=== PATIENT | female | born 1975 | race Caucasian/White ===

== ENCOUNTER 2023-06-18 11:12 | Inpatient (IN) | payer OTHER, SELFPAY ==
[2023-06-17] VITALS (10 sets, daily range): BP systolic 132–160; BP diastolic 72–94; PULSE 106–107; O2SAT 96; BMI 35.7
--- NOTE | 2023-06-17 02:03 | ED.GENMED ---
History of Present Illness
General
Chief Complaint: Back Pain
Source: patient and spouse
Exam Limitations: none
Time Seen by Provider: 06/17/23 01:52
Nursing documentation reviewed up to this point in time: agreed with
Travel History
Have you had any contact with someone who has COVID-19?: No
Do you have any symptoms of coronavirus? Fever > 100 degrees, chills, cough, shortness of breath, sore throat, loss of taste or smell, muscle aches, or headache?: No
History of Present Illness
History of Present Illness:
48-year-old female with past medical history of hypertension, migraines, asthma who presents to the emergency department for evaluation of low back pain. Patient reports that she has had chronic issues with low back pain and sciatica. She says
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 She reports pain across the low back that radiates
towards the left hip. Pain is much worse with movement; no relieving factors noted. She did go to urgent care yesterday () and she says had an x-ray that was unremarkable and was prescribed Flexeril 10 mg tabs and was told to use NSAIDs as
well and neither of these things have improved her symptoms. She says tonight symptoms are so bad that she is having trouble moving around and walking and so she came to the emergency room for assessment. She reports some paresthesias in the left
leg but denies any numbness; she denies any weakness in the legs although she does have significant pain with movement of the left leg which limits her. She denies any saddle anesthesia. She denies any bowel or bladder incontinence. She denies
any falls or trauma. She denies any recent fevers or chills. She denies any other complaints.
Past History
Past History
ED Past Medical History: Asthma, HTN and Other (UTI, kidney stones, previous hysterectomy for endometriosis and ovarian cysts)
ED Past Surgical History: Cholecystectomy and Gynecological (Hysterectomy)
Social History
Tobacco: Non-smoker
Alcohol: None
Drug: None
Personal:
Living: with family
Employment: Not employed
Family History
Family History: Other (Not contributory)
Review of Systems
Review of Systems
All Other Systems: ROS reviewed and negative except as documented in HPI and ROS
Constitutional: Denies fever or chills
EENT: Denies sore throat or runny nose
Respiratory: Denies cough or trouble breathing
Cardiac: Denies chest pain or palpitations
ABD/GI: Denies abdominal pain, nausea, vomiting or diarrhea
: Denies dysuria, frequency, flank pain or incontinence
Musculoskeletal: Reports back pain; Denies neck pain
Neurological: Denies headache
Phy Exam
Physical Exam
Physical Exam:
General: Awake, alert, oriented x3; lying flat on her back appears uncomfortable
Head: Normocephalic, atraumatic
Eyes: Conjunctiva normal
Throat: Airway intact, handling secretions
Neck: Trachea midline, supple without meningismus
Lungs: Clear to auscultation bilaterally, no wheezing, rales, rhonchi
Heart: Regular rate and rhythm, no murmurs, gallops, or rubs
Abd: Soft, non distended, nontender with no abdominal masses
Back: She has some midline tenderness in the lumbar spine at the L2-L3 level
Neuro: Cranial nerves grossly intact, speech fluid; motor and sensory function intact and symmetric bilateral lower extremities
Skin: no rash
Extremities: Warm and well-perfused
Scores
Heart Failure Risk
Heart Failure Risk Score: Not Applicable
Heart Score for Chest Pain Patients
STEMI patient?: Not applicable
Withdrawal Assessment of Alcohol
Withdrawal Assessment Completed?: Not applicable
Course
Orders/Labs/Results
Orders:
Orders
06/17/23 02:02
Acetaminophen [Tylenol] 1,000 mg PO NOW STA
Ketorolac [Toradol] 15 mg IV NOW STA
Lidocaine [Lidocaine 4% Patch] 1 patch TOPICAL ONCE ONE
Morphine Sulfate 4 mg IV NOW STA
06/17/23 02:05
Urinalysis Reflex To Culture Urgent
Test Result ONCE
06/17/23 02:06
CT Abd/pelvis W Iv Cont Urgent
Comment:
Reason For Exam: severe low back pain
06/17/23 02:09
Complete Blood Count/With Diff Urgent
Comprehensive Metabolic Panel Urgent
HCG, Serum Qualitative Screen Urgent
06/17/23 02:12
Ondansetron Injectable [Zofran] 4 mg .ROUTE .STK-MED ONE
06/17/23 02:16
Ondansetron Injectable [Zofran] 4 mg IV NOW STA
06/17/23 04:45
HYDROmorphone [Dilaudid] 0.5 mg IV NOW STA
Abnormal Lab Results
06/17/23
02:09
Hct 36.4 L %
(37.0-47.0)
Absolute Monos (auto) 0.8 H 10^3/uL
(0.1-0.6)
Glucose 117 H mg/dl
(70-99)
ALT 53 H U/L
(0-35)
06/17/23 02:09
06/17/23 02:09
Vital Signs
Initial and Last Documented VS:
Initial Vital Signs
Temp Pulse Resp BP Pulse Ox
36.6 C 69 20 160/89 98
06/17/23 01:54 06/17/23 01:54 06/17/23 01:54 06/17/23 01:54 06/17/23 01:54
Last Documented Vital Signs
Temp Pulse Resp BP Pulse Ox
36.6 C 69 20 160/89 98
06/17/23 01:54 06/17/23 01:54 06/17/23 01:54 06/17/23 01:54 06/17/23 01:54
MDM/Problems Addressed
Differential Diagnosis Includes:
Muscle spasms, myofascial strain, lumbar fracture, herniated disc, lumbosacral radiculopathy, nephrolithiasis, intra-abdominal process including diverticulitis/pyelonephritis
MDM/Problems Addressed:
48-year-old female presents for evaluation of acute on chronic low back pain since Monday. Not responding to muscle relaxers and NSAIDs at home. Hypertensive but otherwise normal vitals. Exam as above. Plan to place an IV send basic labs.
Check urinalysis. Will check CT of the abdomen and pelvis. Will treat symptomatically. Monitor closely reassess after the above.
Initial labs reviewed: CBC and CMP unremarkable. Clinical reassessment after medications patient says she is feeling a bit better but still having significant pain�she says that initially her back pain was 10/10 intensity, since receiving
medication she says she has now 6�7/10. Still having difficulty moving around due to her significant back pain. Awaiting results of CT.
CT reviewed no acute pathology. Clinical reassessment patient says pain has spiked up once again now 9/10. At this point she is requiring multiple parental medications to control her pain and she is still not able to get up and walk around due to
significant pain. Will plan to admit for continued management of intractable low back pain.
Chronic conditions affecting care:
Chronic low back pain and sciatica
Acute Exacerbation and/or Progression of Chronic Illness:
Acutely hypertensive likely related to pain�we will treat pain but hold on antihypertensives for now
Acute Exacerbation and/or Progression of Chronic Illness: HTN
*Radiology
Radiology exam reviewed: radiology read reviewed
*Pulse Oximetry
Patient hypoxic: no
*Critical Care Note
Total Time (30-74mins, 75-104mins- exclusive of procedures): Not Applicable
Data Reviewed
Source: patient and spouse
ED Attending Note
-
Portions of this chart may have been created with voice recognition software.� Occasional wrong word or��sound alike� substitutions may have occurred due to the inherent limitations of voice recognition software.
Discharge Plan
Departure
Prescriptions:
No Action
No Current Medications
0
Referrals:
Wallace Olson MD [Family Provider] -
Interventions
Interventions:
*Risk Screen - Suicide Last Done: 06/17/23 01:54
*General Assessment Last Done: 06/17/23 01:54
*Neglect/Abuse Screening Last Done: 06/17/23 01:54
ED- Fall Risk Assessment Last Done: 06/17/23 02:28
ED-Musculoskeletal Assessment Last Done: 06/17/23 02:28
Discharge Date and Time
Print Language: UKRAINIAN
[2023-06-17] MEDS: TYLENOL 1000 MG PO (02:14)
[2023-06-17] MEDS: TORADOL 15 MG IV (02:14)
[2023-06-17 02:15] LABS: % Basophils 0.7 % (0-2); % Eosinophils 3.6 % (0-6); % Immature Granulocytes 0.2 % (0-0.5); % Lymphocytes 25.5 % (20.5-51.1); % Monocytes 7.5 % (1.7-9.3); % Neutrophils 62.5 % (42.2-75.2); Absolute Basophils 0.1 10^3/uL (0-0.2); Absolute Eosinophils 0.4 10^3/uL (0-0.7); Absolute Lymphocytes 2.6 10^3/uL (1.2-3.4); Absolute Monocytes 0.8 10^3/uL (0.1-0.6); Absolute Neutrophils 6.3 10^3/uL (1.4-6.5); Hematocrit 36.4 % (37.0-47.0); Hemoglobin 12.8 g/dL (12.0-16.0); Mean Corp Hgb Conc. 35.2 g/dL (33.0-37.0); Mean Corpuscular Hgb 29.8 pg (27.0-31.0); Mean Corpuscular Volume 84.7 fL (81.0-99.0); Mean Platelet Volume 9.4 fL (7.4-10.4); Nucleated Red Blood Cells % 0 %; Platelet Count 357 10^3/uL (130-400); White Blood Cell Count 10.1 10^3/uL (4.8-10.8)
[2023-06-17] MEDS: MORPHINE SULFATE 4 MG IV (02:15)
[2023-06-17] MEDS: LIDOCAINE 4% PATCH 1 PATCH TOPICAL (02:15)
[2023-06-17] MEDS: ZOFRAN 4 MG IV (02:16)
[2023-06-17 02:30] LABS: HCG, Serum Qualitative Screen Negative
[2023-06-17 02:32] LABS: ALT (SGPT) 53 U/L (0-35); AST (SGOT) 33 U/L (14-36); Albumin 4.3 g/dl (3.5-5.0); Alkaline Phosphatase 100 U/L (38-126); Blood Urea Nitrogen 16 mg/dl (7-17); Calcium 9.5 mg/dl (8.4-10.2); Carbon Dioxide 24 mmol/L (22-30); Chloride 106 mmol/L (98-107); Glucose 117 mg/dl (70-99); Potassium 3.7 mmol/L (3.5-5.1); Sodium 137 mmol/L (135-145); Total Bilirubin 0.6 mg/dl (0.2-1.3); Total Protein 7.2 g/dl (6.3-8.2); eGFR > 60.00
[2023-06-17] MEDS: DELTASONE 50 MG PO (04:58)
[2023-06-17] MEDS: DILAUDID 0.5 MG IV (04:58)
--- NOTE | 2023-06-17 05:11 | HPS.HSE ---
Family Physician
-
Family Physician: Wallace Olson
Chief Complaint
-
Chr LBP flare
History of Present Illness
48F HX chr LBP with sciatica, HTN, Kidney stone seen at ER fo evalaution of intractable LBP despite IV Tylenol 1g, IV Toradol 15 mg, IV Morphine 4mg, IV Dilaudid 0.5mg at ER.
Onset of worsening pain since Wed with radiation to Lt Hip. It is aggravated by movement. No significant relieving factors.
Despite OP Flexeril 10 mg tabs and NSAIDs failed to relive pain.
ROS
POS paraesthesia leg
No saddle anesthesia.
No weakness in the legs
No acute BW and bladder incontinence
Medical History
Past Medical History
Past Medical History: Reports Other
Additional Past Medical History:
Asthma
HTN
UTI
Kidney stones
Past Surgical History: Reports Cholecystectomy and Gynocological (hysterectomy )
Social History
Tobacco: Non-smoker
Alcohol: None
Drug: None
Personal:
Living: With Family
Family History
Family History: Not pertinent
Allergies / Home Medications
Allergies reflects when Allergies were last updated in [employer].
Home Medications with original date entered in [employer]
Allergy/Medication List:
Allergies
Allergy/AdvReac Type Severity Reaction Status Date / Time
morphine Allergy Severe Nausea / Verified 01/15/23 19:40
Vomiting
codeine Allergy 'heart Verified 01/15/23 19:40
races'
Home Medications
No Meds [No Current Medications] 01/15/23
Review of Systems
-
Constitutional: Reports No Symptoms
EENT: Reports No Symptoms
Respiratory: Reports No Symptoms
Cardiac: Reports No Symptoms
Abdomen/GI: Reports No Symptoms
: Reports No Symptoms
Musculoskeletal: Reports See HPI
Skin: Reports No Symptoms
Neurological: Reports No Symptoms
Endocrine: Reports No Symptoms
Hematologic/Lymphatic: Reports No Symptoms
Psych: Reports No Symptoms
Physical Exam
Vital Signs
Vital Signs
Temp Pulse Resp BP Pulse Ox
97.8 F 69 20 132/74 97
06/17/23 01:54 06/17/23 01:54 06/17/23 01:54 06/17/23 05:00 06/17/23 05:00
Physical Exam
General: Appears in Distress (while lying flat )
HEENT: NormoCephalic and Atraumatic
Respiratory: Clear
Cardiac: S1/S2 and Regular Rhythm
Breast: Deferred by me
GI: Soft, Non Tender, Non Distended and Normal Bowel Sounds
Rectal: Deferred by Provider
Genito-urinary: Deferred by me
Musculoskeletal: Other (midline tenderness at L2-L3 level)
Skin: Warm and Dry
Neuro: AO x 3, No Motor Deficits and Cranial Nerves Intact
Psych: Calm
Laboratory Results
-
06/17/23 02:09
06/17/23 02:09
Laboratory Results
Total Bilirubin 0.6 mg/dl (0.2-1.3) 06/17/23 02:09
AST 33 U/L (14-36) 06/17/23 02:09
ALT 53 U/L (0-35) H 06/17/23 02:09
Alkaline Phosphatase 100 U/L (38-126) 06/17/23 02:09
Data Reviewed
-
CT Scan: Report Reviewed by me
Lab Data: Labs Reviewed by me
Impression/Plan
-
Reviewed VS: Afebrile HR 70 BP 160/90
Data
nl CBC
nl CMP
CT AP with IV contrast
No canal stenosis of Lx spine
Hepatic steatosis
S/p cholecystectomy
ASSESSMENT & PLAN
Acute on chronic Lt sided Lumbosacral radiculopathy
No red flag signs such as b/l weakness, B & B dysfunction
- Hold off MRI
- Conservative medical Tx : Medrol dose pack, MS relaxant, Dilaudid analgesia
- PT/OT consult
HX HTN - sub optimal control
- add IV Hydralazine PRN
- adequate back pain control and observe BP
HX Kidney stone
Unremarkable CT AP
DVT Px: LMWH
Code: Full
Obs MS
[2023-06-17] MEDS: VALIUM 2 MG PO ×2 (07:59→19:38)
--- NOTE | 2023-06-17 08:22 | W.PN.HOSP.TC ---
Today's Communication/Plan
-
Pain control. MRI of the lumbar spine. Neurosurgery eval
Assessment / Plan
Assessment / Plan
Physical Exam
General: Appears in Distress (while lying flat )
HEENT: NormoCephalic and Atraumatic
Respiratory: Clear
Cardiac: S1/S2 and Regular Rhythm
Breast: Deferred by me
GI: Soft, Non Tender, Non Distended and Normal Bowel Sounds
Rectal: Deferred by Provider
Genito-urinary: Deferred by me
Musculoskeletal: Other (midline tenderness at L2-L3 level)
Skin: Warm and Dry
Neuro: AO x 3, No Motor Deficits and Cranial Nerves Intact
Psych: Calm
A/P:
Acute on chronic Lt sided Lumbosacral radiculopathy:
-Plan for MRI of the lumbar spine today
-Continue pain medications and steroids--> Medrol dose pack, MS relaxant, Dilaudid analgesia
- PT/OT consult
Addendum:
-Patient MRI with large left posterior this protrusion at L5-S1. Will have neurosurgery consult (Luther texted neurosurgery today).
HX HTN - sub optimal control
- add IV Hydralazine PRN
-
HX Kidney stone
Unremarkable CT AP
DVT Px: LMWH--> change to SCDs if patient is procedure surgery
Code: Full
Anticipated Discharge: 24 - 48 hours
Subjective/Interval History
-
Date of Service: June 17, 2023
Patient continues to have significant back pain radiated to left lower extremity. She has some weakness in that extremity as well. No fevers or chills. No chest pain or shortness of breath.
Objective Data
-
Labs:
Laboratory Results
06/17/23
02:09
WBC 10.1
Hgb 12.8
Hct 36.4 L
Plt Count 357
Sodium 137
Potassium 3.7
Chloride 106
Carbon Dioxide 24
BUN 16
Creatinine 0.6
Glucose 117 H
Calcium 9.5
Total Bilirubin 0.6
AST 33
ALT 53 H
Alkaline Phosphatase 100
Vital Signs:
Vital Signs
Temp Pulse Resp BP Pulse Ox
97.8 F 69 20 134/85 97
06/17/23 01:54 06/17/23 01:54 06/17/23 01:54 06/17/23 07:17 06/17/23 07:17
Review of Systems
-
All other systems: Reviewed and negative
--- NOTE | 2023-06-17 09:00 | PTCARENOTE ---
Received pt from ED. Pt transferred from stretcher to bed with crutches and minimal assistance. Vital signs stable. patient denies any chest pain or shortness of breath. Pt oriented to unit. All questions/concerns answered. call bel within reach.
[2023-06-17] MEDS: DILAUDID 0.25 MG IV ×4 (09:41→23:14)
[2023-06-17] MEDS: TYLENOL PO (15:47)
[2023-06-17] MEDS: TYLENOL 650 MG PO ×3 (15:49→23:14)
[2023-06-17] MEDS: COLACE 100 MG PO (19:39)
[2023-06-17 21:36] LABS: Urine Albumin Negative (Neg - Trace); Urine Bilirubin Negative (Negative); Urine Character Clear (Clear); Urine Color Yellow; Urine Glucose Negative (Negative); Urine Ketone Trace (Negative); Urine Leukocyte Trace (Negative); Urine Nitrite Negative (Negative); Urine Occult Blood Negative (Negative); Urine Urobilinogen Negative (Neg - 1+)
[2023-06-17 21:57] LABS: Urine Mucus Moderate
[2023-06-17 21:58] LABS: Urine Bacteria Moderate (Negative); Urine Red Blood Cell 0-2 /HPF (0-2)
[2023-06-18] MEDS: AUGMENTIN 875 MG/125 MG 1 TABLET PO ×2 (00:25→07:59)
[2023-06-18] MEDS: DILAUDID 0.25 MG IV ×3 (03:25→11:14)
[2023-06-18] MEDS: TYLENOL 650 MG PO ×5 (03:25→19:43)
--- NOTE | 2023-06-18 04:22 | W.PN.UPDATE ---
Update Note
Progress Note Update
12/17 UA with Trace ketones and Leukocyte Esterase, 11-15 WBC and moderate bacteria,
Urine culture pending. Patient has hx of UTI, will start on Augmentin PO, patient can tolerate PO medications. No new symptoms.
[2023-06-18 07:57] VITALS: BP 154/85
[2023-06-18] MEDS: COLACE 100 MG PO ×2 (07:59→19:43)
[2023-06-18] MEDS: VALIUM 2 MG PO ×2 (07:59→19:43)
[2023-06-18] MEDS: MEDROL 24 MG PO (08:00)
--- NOTE | 2023-06-18 08:28 | W.PN.HOSP.TC ---
Today's Communication/Plan
-
Pain control. Neurosurgery plan for surgery tomorrow.
Assessment / Plan
Assessment / Plan
Physical Exam
General: Appears in Distress (while lying flat )
HEENT: NormoCephalic and Atraumatic
Respiratory: Clear
Cardiac: S1/S2 and Regular Rhythm
Breast: Deferred by me
GI: Soft, Non Tender, Non Distended and Normal Bowel Sounds
Rectal: Deferred by Provider
Genito-urinary: Deferred by me
Musculoskeletal: Other (midline tenderness at L2-L3 level)
Skin: Warm and Dry
Neuro: AO x 3, No Motor Deficits and Cranial Nerves Intact
Psych: Calm
A/P:
Acute on chronic Lt sided Lumbosacral radiculopathy:
-Plan for MRI of the lumbar spine today
-Continue pain medications and steroids--> Medrol dose pack, MS relaxant, Dilaudid analgesia
- PT/OT consult
-Patient MRI with large left posterior this protrusion at L5-S1. Neurosurgery consulted--> discussed with neurosurgery today and plan for surgery likely tomorrow.
-Increase pain meds today
Prob Urinary tract infection:
-Empirically start IV ceftriaxone
-Follow-up urine culture
-IVF one liter
HX HTN - sub optimal control
- added IV Hydralazine PRN-->reevaluate after pain better
Migraine
-pain control
HX Kidney stone
Unremarkable CT AP
DVT Px: Stop Lovenox. Started SCD
Code: Full
Anticipated Discharge: > 48 hours
Subjective/Interval History
-
Date of Service: June 18, 2023
Patient still having significant back pain radiated to left leg. Weakness. Afebrile.
Objective Data
-
Vital Signs:
Vital Signs
Temp Pulse Resp BP Pulse Ox
97.9 F 87 16 135/81 96
06/17/23 23:05 06/17/23 23:05 06/17/23 23:05 06/17/23 23:05 06/17/23 23:05
I&O
06/17/23 06/18/23 06/19/23
06:59 06:59 06:59
Intake Total 1140 / 1140
Balance 1140 / 1140
[2023-06-18] MEDS: ROCEPHIN 1000 MG IV (08:59)
[2023-06-18] MEDS: STERILE WATER FOR INJECTION 10 ML IV (09:00)
--- NOTE | 2023-06-18 11:04 | CON.NS ---
Addendum entered and electronically signed by Naren Earl DO 06/18/23 11:14:
PLan for OR tomorrow with Dr. Pratt
Original Note:
Chief Complaint
-
Back and left leg pain
History of Present Illness
This is a 48-year-old female admitted for severe back pain and left leg pain. The pain radiates in an S1 distribution. She rates her pain 10 out of 10 upon presentation currently 6-7 out of 10. She notes significant weakness in her left leg and
pain which began on Monday. States she has had back pain since January or February 2023. She is managing her symptoms with chiropractic. She denies any bowel or bladder incontinence. Denies any numbness or tingling. Denies any symptoms in
the right leg. She is unable to walk on the left leg secondary to severe amounts of pain.
Review of Systems
-
10 point review of systems completed and is negative except as stated in the HPI
Medication and Allergies
Home Medications
Home Medications
�Medication �Instructions �Recorded
No Meds [No Current Medications] 01/15/23
Allergies
Allergies
Allergy/AdvReac Type Severity Reaction Status Date / Time
morphine Allergy Severe Nausea / Verified 01/15/23 19:40
Vomiting
codeine Allergy 'heart Verified 01/15/23 19:40
races'
Physical Exam
-
Exam:
AAOx3
Cranials 2 through 12 grossly intact
Sensory is grossly intact
DTRs are decreased in left leg
Motor strength testing reveals 5-5 upper extremity lower extremity strength except for her left TA/EHL/plantarflexion all of which are 3 out of 5
MRI lumbar spine reveals large L5-S1 left sided disc herniation and compression of the S1 nerve root.
Problems
-
Problem Status Onset Code
Low back pain M54.50
Assessment / Plan
-
L5-S1 disc herniation on the left
1. Continue pain control with current regiment
2. I recommended surgical intervention which would consist of a left-sided microdiscectomy at L5-S1. I explained all risks benefits and alternatives to her. Risks include but are not limited to infection, bleeding, numbness, weakness, pain,
paralysis, failure to improve, need for further intervention, disc reherniation, CSF leak.
3. We discussed nonsurgical interventions consisting of epidural steroid injection however given her weakness I recommend surgery.
4. Will make tentative plans for surgery this week. Date to be determined.
5. Will follow.
--- NOTE | 2023-06-18 12:26 | CM ---
manager restaurant reviewed patient's chart and met with patient. Patient was admitted under obs but switched to inpatient, patient made aware. Patient lives with her spouse in a split level home, patient is independent with adl's and ambulation, patient
drives, patient has a prescription plan and uses [facility].
PCP: Dr. Olson
Plan; Patient is for possible OR tomorrow.
[2023-06-18] MEDS: NSS 1000 IV (13:27)
[2023-06-18] MEDS: DILAUDID 0.5 MG IV ×3 (13:36→22:05)
[2023-06-18 15:42] VITALS: BP 143/90
[2023-06-18] MEDS: BenGay-Like 41 APPLIC TOPICAL (18:09)
[2023-06-18 23:15] VITALS: BP 145/86
[2023-06-19] VITALS (15 sets, daily range): BP systolic 125–163; BP diastolic 73–101
[2023-06-19] MEDS: TYLENOL PO ×4 (00:44→18:34)
[2023-06-19] MEDS: DILAUDID 0.5 MG IV ×5 (02:05→20:38)
[2023-06-19 06:35] LABS: % Basophils 0.7 % (0-2); % Eosinophils 1.3 % (0-6); % Immature Granulocytes 0.4 % (0-0.5); % Lymphocytes 35.3 % (20.5-51.1); % Monocytes 6.6 % (1.7-9.3); % Neutrophils 55.7 % (42.2-75.2); Absolute Basophils 0.1 10^3/uL (0-0.2); Absolute Eosinophils 0.2 10^3/uL (0-0.7); Absolute Immature Granulocytes 0.1 10^3/uL (0-0.05); Absolute Lymphocytes 4.5 10^3/uL (1.2-3.4); Absolute Monocytes 0.8 10^3/uL (0.1-0.6); Hematocrit 39.3 % (37.0-47.0); Hemoglobin 13.5 g/dL (12.0-16.0); Mean Corp Hgb Conc. 34.4 g/dL (33.0-37.0); Mean Corpuscular Hgb 29.8 pg (27.0-31.0); Mean Corpuscular Volume 86.8 fL (81.0-99.0); Mean Platelet Volume 9.7 fL (7.4-10.4); Nucleated Red Blood Cells % 0 %; Platelet Count 394 10^3/uL (130-400); Red Blood Cell Count 4.53 10^6/uL (4.20-5.40); Red Cell Dist. Width 12.1 % (11.5-14.5); White Blood Cell Count 12.7 10^3/uL (4.8-10.8)
[2023-06-19 06:59] LABS: Blood Urea Nitrogen 23 mg/dl (7-17); Calcium 9.9 mg/dl (8.4-10.2); Carbon Dioxide 30 mmol/L (22-30); Chloride 98 mmol/L (98-107); Estimated Creatinine Clearance > 125 ml/min; Glucose 93 mg/dl (70-99); Potassium 4.4 mmol/L (3.5-5.1); Sodium 137 mmol/L (135-145); eGFR > 60.00
[2023-06-19] MEDS: MEDROL 20 MG PO (09:06)
[2023-06-19] MEDS: COLACE 100 MG PO ×2 (09:07→21:55)
[2023-06-19] MEDS: VALIUM 2 MG PO ×2 (09:07→21:55)
[2023-06-19] MEDS: TYLENOL 650 MG PO ×2 (09:07→21:55)
[2023-06-19] MEDS: STERILE WATER FOR INJECTION 10 ML IV (09:08)
[2023-06-19] MEDS: ROCEPHIN 1000 MG IV (09:08)
--- NOTE | 2023-06-19 09:53 | W.PN.HOSP.TC ---
Today's Communication/Plan
-
Await OR
Stop antibiotics
Assessment / Plan
Assessment / Plan
Gen-AAOx3, NAD, obese
HEENT-NC, AT, anicteric, clear oral mm
Neck-supple
CV-reg, no M, +S1/S2
Lungs-clear B/L
Abd-soft, NT, ND
Ext-no edema
Musculoskeletal-no cyanosis, clubbing
Skin-warm and dry
Neuro-grossly non-focal
Psych-calm, cooperative
Acute on chronic Lt sided Lumbosacral radiculopathy:
-Continue pain medications and steroids--> Medrol dose pack, MS relaxant, Dilaudid analgesia
- PT/OT consult
MRI with large left posterior disc protrusion at L5-S1, impinging upon the descending left S1 nerve root. Neurosurgery plans for OR today.
Asymptomatic pyuria -urine culture with 50,000 CFU per mL mixed vik. Probable contamination. Doubt UTI. Stop antibiotics.
Essential hypertension- sub optimal control
- added IV Hydralazine PRN-->reevaluate after pain better
Migraine
-pain control
HX Kidney stone
Unremarkable CT AP
Mild intermittent asthma -stable.
Obesity due to excess calories
DVT Px: Stop Lovenox. Started SCD
Code: Full
Anticipated Discharge: Within 24 hours
Subjective/Interval History
-
Date of Service: June 19, 2023
Patient seen and examined. No new complaints.
Objective Data
-
Labs:
Laboratory Results
06/19/23
06:07
WBC 12.7 H
Hgb 13.5
Hct 39.3
Plt Count 394
Sodium 137
Potassium 4.4
Chloride 98
Carbon Dioxide 30
BUN 23 H
Creatinine 0.5 L
Glucose 93
Calcium 9.9
Vital Signs:
Vital Signs
Temp Pulse Resp BP Pulse Ox
98.2 F 74 18 145/86 94
06/19/23 07:30 06/19/23 07:30 06/19/23 07:30 06/19/23 07:30 06/19/23 07:30
I&O
06/18/23 06/19/23 06/20/23
06:59 06:59 06:59
Intake Total 1140 / 1140 560 / 560
Balance 1140 / 1140 560 / 560
Review of Systems
-
History Source: Patient
All other systems: Reviewed and negative
--- NOTE | 2023-06-19 11:17 | PN.NS ---
Subjective
-
Patient seen and examined. Imaging reviewed. Patient continues to have left lower extremity radicular pain
Physical Exam
-
Exam:
Exam:
AAOx3
Cranials 2 through 12 grossly intact
Sensory is grossly intact
DTRs are decreased in left leg
Motor strength testing reveals 5-5 upper extremity lower extremity strength except for her left TA/EHL/plantarflexion all of which are 3 out of 5
MRI lumbar spine reveals large L5-S1 left sided disc herniation and compression of the S1 nerve root.
Problems
-
Problem Status Onset Code
Low back pain M54.50
Assessment / Plan
-
L5-S1 disc herniation on the left
Will proceed with left L5 microdiscectomy today.
Consents are signed. All the patient's questions and concerns were appropriately answered and addressed.
Today's Communication
-
Discussed with patient,hospital medicine.
--- NOTE | 2023-06-19 14:04 | CM ---
Patient off floor, OR.
--- NOTE | 2023-06-19 14:20 | OR.RPT ---
Operative Report
Operative Report
Date of operation: 06/19/2023
Surgeon: Amy Pratt MD
Sales Development Associate: ZANDER Marquez
Procedure: 1. Left L5-S1 laminotomy for microdiscectomy.
2. Utilization of the microscope for intraoperative illumination and visualization/microdissection.
3. Interpretation of intraoperative fluoroscopy
Preoperative diagnosis: Left L5-S1 disc herniation with radiculopathy
Postoperative diagnosis: Left L5-S1 disc herniation with radiculopathy.
Anesthesiologist:
Type of anesthesia: General
Indications for the procedure: This is a 48-year-old female who presented with acute onset of left sided leg pain and back pain. She has a chronic history of back pain, but the leg pain was new. She was unable to control the pain at home, despite
muscle relaxants, and anti-inflammatory medications. She had an MRI of the lumbar spine, which demonstrated a left L5-S1 disc herniation, with severe compression of the left S1 nerve root. She reported that she was unable to ambulate in the left
leg, secondary to severe amounts of pain.
Procedure in detail: The patient was identified in the preoperative holding area. The planned procedure was confirmed and questions were answered. Consents were signed. Patient was then brought to the operating room. She was induced under
general due to anesthesia. She was then placed from the supine position to the prone position onto an Gordy table. Special care was taken to ensure that all pressure points, including her eyes, chin, chest, groin, and knees were appropriately
padded. A 1010 drape was placed over the gluteal fold. Preoperative lateral fluoroscopic images were taken to jamari an incision over the L5-S1 area. This area was then prepped and draped in the standard surgical fashion. After appropriate timeout
was obtained, and the surgical checklist were completed, local anesthetic was then infiltrated to the marked incision. Using a 10 blade, an incision was made through the skin. Using Bovie electrocautery, dissection was then carried down to the
fascia. A incision was made through the lumbodorsal fascia along the spinous processes on the left side of the spine, and subperiosteal dissection was then carried out using Bovie electrocautery. The interlaminar space at L5-S1 was then dissected,
and a Sandstone 4 dissector was placed, and this area was confirmed with intraoperative localization/fluoroscopy. Once this was done, the microscope was then brought in for appropriate visualization. Retractors were placed to hold the lateral
musculature side. Under microscopic visualization, a laminotomy was made by removing the inferior half of the L5 lamina, and the superior half of the S1 lamina. Ligamentum flavum was encountered, this was then removed using 2 and 3 mm Kerrison
punch rongeurs. Epidural fat was encountered. The lateral aspect of the thecal sac, and the nerve root was then encountered. This was then dissected using a Sandstone 4 dissector. Almost immediately we felt a focal disc protrusion just under the
lateral aspect of the S1 nerve root. Using the Sandstone 4 dissector, the S1 nerve root was gently medially retracted. Micropituitary rongeur was then utilized to remove the extruded disc fragment. This was then passed off for permanent specimen.
Additional disc fragment that lead into the annular tear was also removed. A Mclennan dissector was then utilized to ensure that there was no evidence of additional impingement on the nerve root around the thecal sac. Once it was confirmed that
there was no evidence of any additional free fragments within the disc base, the wound was then thoroughly irrigated with normal saline irrigation. Surgiflo hemostatic material was then placed over the nerve root and over the laminotomy defect.
The subfascial musculature was then infiltrated with additional local anesthetic. At this point, I elected to close. The microscope was then taken out of the field. The fascia was then reapproximated using interrupted 0 Vicryl sutures the
subcutaneous fatty tissue was then reapproximated using interrupted 2-0 Vicryl sutures. The subdermal and epidermal layers were then reapproximated using interrupted inverted 3-0 Vicryl sutures. The skin was then dressed using Mastisol,
Steri-Strips, dressed with Telfa and Tegaderm. The patient was then carefully positioned for the prone position to the supine position and extubated by anesthesia. All needle sponge counts were correct at the end the procedure. No complications
were encountered. The patient's was made aware of the intraoperative, as well as tanya and postoperative course expected, to which he expressed understanding. My PA, Linda Quigley, was necessary for all vital portions of the procedure
including opening, dissection, retraction, suction, and suture management.
--- NOTE | 2023-06-19 14:41 | SUR.PHASEI ---
Patient incontinent of urine, bed saturated on arrival to PACU. Skin cleansed and sheets changed. Dave Hernández RN BSN.
[2023-06-19] MEDS: NSS 1000 IV (14:58)
[2023-06-19] MEDS: DILAUDID 0.25 MG IV (15:10)
--- NOTE | 2023-06-19 17:00 | PTCARENOTE ---
Rec'd Pt back from PACU s/p Left L5-S1 laminotomy for microdiscectomy. Report taken from Jay in PACU. Pt is drowsy. No c/o pain at this time. Re-oriented to room with call vincent in place. Plan of care ongoing.
[2023-06-19] MEDS: ZOFRAN 4 MG IV (18:35)
[2023-06-19] MEDS: ANCEF 5 IV (20:39)
[2023-06-19] MEDS: SENOKOT 17.1999999999999993 MG PO (21:55)
[2023-06-20] MEDS: TYLENOL PO ×3 (00:43→12:26)
[2023-06-20 02:54] VITALS: BP 142/82
[2023-06-20] MEDS: ANCEF 5 IV ×2 (04:02→12:27)
[2023-06-20] MEDS: NSS IV (05:37)
[2023-06-20] MEDS: TYLENOL 650 MG PO ×4 (05:45→19:55)
[2023-06-20 07:30] VITALS: BP 120/76
[2023-06-20] MEDS: NSS 1000 IV (08:45)
[2023-06-20] MEDS: VALIUM 2 MG PO ×2 (08:45→19:55)
[2023-06-20] MEDS: SENOKOT 17.1999999999999993 MG PO ×2 (08:45→19:54)
[2023-06-20] MEDS: COLACE 100 MG PO ×2 (08:47→19:54)
[2023-06-20] MEDS: MEDROL 16 MG PO (08:47)
--- NOTE | 2023-06-20 11:17 | W.PN.HOSP.TC ---
Today's Communication/Plan
-
PT/OT
Assessment / Plan
Assessment / Plan
Gen-AAOx3, NAD, obese
HEENT-NC, AT, anicteric, clear oral mm
Neck-supple
CV-reg, no M, +S1/S2
Lungs-clear B/L
Abd-soft, NT, ND
Ext-no edema
Musculoskeletal-no cyanosis, clubbing
Skin-warm and dry
Neuro-grossly non-focal
Psych-calm, cooperative
Acute on chronic Lt sided Lumbosacral radiculopathy:
-Continue pain medications and steroids--> Medrol dose pack, MS relaxant, Dilaudid analgesia
- PT/OT consult
MRI with large left posterior disc protrusion at L5-S1, impinging upon the descending left S1 nerve root.
Underwent left L5-S1 laminotomy for microdiscectomy on 06/18.
Encouraged patient to work on building up core strength to help with chronic back pain.
Asymptomatic pyuria -urine culture with 50,000 CFU per mL mixed vik. Probable contamination. Doubt UTI. Antibiotics discontinued.
Constipation -last bowel movement was . MiraLAX ordered. Encourage ambulation.
Essential hypertension-stable.
Migraine
-pain control
HX Kidney stone
Unremarkable CT AP
Mild intermittent asthma -stable.
Obesity due to excess calories
DVT Px: Stop Lovenox. Started SCD
Code: Full
Dispo -anticipate discharge home if okay with neurosurgery. Awaiting PT/OT. Likely discharge on as needed Motrin.
Anticipated Discharge: Today
Subjective/Interval History
-
Date of Service: June 20, 2023
Patient seen and examined. Pain is controlled currently. No complaints.
Objective Data
-
Vital Signs:
Vital Signs
Temp Pulse Resp BP Pulse Ox
98.6 F 74 18 120/76 96
06/20/23 07:30 06/20/23 07:30 06/20/23 07:30 06/20/23 07:30 06/20/23 07:30
I&O
06/19/23 06/20/23 06/21/23
06:59 06:59 06:59
Intake Total 560 / 560 1234 / 1234
Balance 560 / 560 1234 / 1234
Review of Systems
-
History Source: Patient
All other systems: Reviewed and negative
[2023-06-20 11:45] VITALS: BP 148/86
[2023-06-20] MEDS: MIRALAX 17 GRAMS PO (12:27)
[2023-06-20 13:56] VITALS: BP 126/76; BP 148/86; PULSE 78; PULSE 79
[2023-06-20 15:30] VITALS: BP 156/95
[2023-06-20] MEDS: ZANAFLEX 4 MG PO (15:45)
--- NOTE | 2023-06-20 15:46 | PN.NS ---
Subjective
-
Patient seen and examined. is at bedside. Patient reports bilateral lumbar paraspinal pain, rating to bilateral hips. Reports left lower extremity radicular pain has improved/resolved. Was able to mobilize out of bed to the bathroom this
morning. Reports that was unable to participate in physical therapy, due to significant low back pain/awkward positioning while sitting.
Physical Exam
-
Exam:
Awake, alert, conversant
Cranial nerves II to XII are grossly intact.
Motor: 5/5 strength in bilateral lower extremities in all muscle groups.
Lumbosacral dressing is clean/dry.
Problems
-
Problem Status Onset Code
Low back pain M54.50
Assessment / Plan
-
Postoperative day 1, status post left L5-S1 microdiscectomy. Radicular pain has improved. However, has bilateral lumbosacral/hip paraspinal incisional pain
Patient reports adverse reaction to narcotic pain medications.
-- Discussed with patient's RN, and hospital medicine.
-- Will alternate between muscle relaxants and Tylenol. Ice packs as needed.
-- Repeat physical therapy evaluation tomorrow
-- Anticipate hopeful discharge tomorrow.
-- Encouraged slow mobilization to help with lumbar spasm.
Patient can go home per my specialty: Tomorrow
Today's Communication
-
Discussed with , patient, patient's RN, and hospital medicine
--- NOTE | 2023-06-20 15:46 | CM ---
Patient and spouse seen bedside, declining home health or rehab. Patient agreeable for script for outpatient PT, TT sent to Hospitalist. CM will continue to follow for discharge planning needs.
Plan; home with , outpatient PT script.
--- NOTE | 2023-06-20 16:08 | PTCARENOTE ---
Pt c/o severe low back pain after Physical Therapy. Per neurosurgery verbal rec's... Medicated with scheduled Tylenol, PRN Zanaflex and ice pack to low back. Plan of care ongoing.
[2023-06-20 23:20] VITALS: BP 115/69
[2023-06-21] MEDS: TYLENOL 650 MG PO ×3 (01:28→11:10)
[2023-06-21] MEDS: MAALOX 30 ML PO (01:31)
[2023-06-21] MEDS: ZANAFLEX 4 MG PO ×2 (01:31→07:44)
[2023-06-21] MEDS: TYLENOL PO (05:08)
[2023-06-21 07:30] VITALS: BP 124/80
[2023-06-21] MEDS: VALIUM 2 MG PO (07:44)
[2023-06-21] MEDS: MIRALAX PO (07:44)
[2023-06-21] MEDS: SENOKOT 17.1999999999999993 MG PO (07:44)
[2023-06-21] MEDS: MEDROL 12 MG PO (07:44)
[2023-06-21] MEDS: COLACE 100 MG PO (07:44)
[2023-06-21] MEDS: DILAUDID IV (07:45)
--- NOTE | 2023-06-21 10:32 | W.PN.HOSP.TC ---
Today's Communication/Plan
-
Discharge
Assessment / Plan
Assessment / Plan
Gen-AAOx3, NAD, obese
HEENT-NC, AT, anicteric, clear oral mm
Neck-supple
CV-reg, no M, +S1/S2
Lungs-clear B/L
Abd-soft, NT, ND
Ext-no edema
Musculoskeletal-no cyanosis, clubbing
Skin-warm and dry
Neuro-grossly non-focal
Psych-calm, cooperative
Acute on chronic Lt sided Lumbosacral radiculopathy:
-Continue pain medications and steroids--> Medrol dose pack, MS relaxant, Dilaudid analgesia
- PT/OT consult
MRI with large left posterior disc protrusion at L5-S1, impinging upon the descending left S1 nerve root.
Underwent left L5-S1 laminotomy for microdiscectomy on 06/18.
Encouraged patient to work on building up core strength to help with chronic back pain.
Discussed with neurosurgery, plan to use as needed Tylenol and muscle relaxants on discharge. Avoid NSAIDs. Discussed with patient. Follow-up as outpatient. Outpatient PT.
Asymptomatic pyuria -urine culture with 50,000 CFU per mL mixed vik. Probable contamination. Doubt UTI. Antibiotics discontinued.
Constipation -last bowel movement was . MiraLAX ordered. Encourage ambulation.
Essential hypertension-stable.
Migraine
-pain control
HX Kidney stone
Unremarkable CT AP
Mild intermittent asthma -stable.
Obesity due to excess calories
DVT Px: Stop Lovenox. Started SCD
Code: Full
Dispo -medically stable for discharge home today. updated at the bedside.
35 minutes spent in discharge process.
Anticipated Discharge: Today
Subjective/Interval History
-
Date of Service: June 21, 2023
Patient seen and examined. Feeling better overall. Eating breakfast. No complaints.
Objective Data
-
Vital Signs:
Vital Signs
Temp Pulse Resp BP Pulse Ox
97.6 F 73 18 124/80 97
06/21/23 07:30 06/21/23 07:30 06/21/23 07:30 06/21/23 07:30 06/21/23 07:30
I&O
06/20/23 06/21/23 06/22/23
06:59 06:59 06:59
Intake Total 1734 / 1734 1960 / 1960
Output Total 2700 / 2700
Balance 1734 / 1734 -740 / -740
Review of Systems
-
History Source: Patient
All other systems: Reviewed and negative
--- NOTE | 2023-06-21 10:36 | W.DS.TRANS ---
DC Summary - [employer]
-
Discharge Instructions:
Discharge Diagnosis/Procedures Lumbosacral radiculopathy, intractable pain
Diet Regular
Activity As tolerated
Driving Restrictions As prior to admission
Bathing Restrictions None
Other Services PT
Instructions:
Stand-Alone Forms:
Changes to Home Medications: No
Discharge Medications:
DC Medications w/original date entered in [facility]
acetaminophen 500 mg capsule 1,000 mg (2 x 500 mg) PO Q6H PRN pain #60 caps 06/20/23
docusate sodium 100 mg capsule 100 mg PO BID #0 caps 06/20/23
polyethylene glycol 3350 17 gram oral powder packet (HealthyLax) 17 g PO DAILY #0 ea 06/20/23
tizanidine 4 mg capsule 4 mg PO TID PRN muscle spasticity #20 caps 06/21/23
Home Medication Changes
Pending Results: No
== END 2023-06-21 11:45 | disposition home or self-care (01) | DRG 520 ==
LOC: 4 WEST ACU 11:12
PROVIDERS: Hospitalist; Neurological Surgery; ADMITTING PHYSICIAN Internal Medicine; ATTENDING PHYSICIAN Hospitalist; CONSULT PHYSICIAN Neurological Surgery; EMERGENCY PHYSICIAN Emergency Medicine; FAMILY PHYSICIAN Internal Medicine Geriatric Medicine
PROC: 0SB20ZZ Excision of Lumbar Vertebral Disc, Open Approach (ICD-10-PCS; 2023-06-19)
DX: M51.17 Intervertebral disc disorders with radiculopathy, lumbosacral region (principal); I10 Essential (primary) hypertension; G43.909 Migraine, unspecified, not intractable, without status migrainosus; E66.09 Other obesity due to excess calories; Z68.35 Body mass index [BMI] 35.0-35.9, adult; J45.20 Mild intermittent asthma, uncomplicated; K59.00 Constipation, unspecified
CPT/HCPCS: 88304; 88311; 72100; 72148; 74177; 76000; 80048; 80053; 81003; 81015; 84703; 85025; 87086; 96374; 96375; 97116; 97162; 97166; 97530; 99285; Q9967

== ENCOUNTER → 2023-08-04 15:35 | Outpatient (REF) | payer OTHER, SELFPAY | LOC: MRI 3T 15:35 | PROVIDERS: ATTENDING PHYSICIAN Physician Assistant Medical; FAMILY PHYSICIAN Internal Medicine Geriatric Medicine | DX: Z98.890 Other specified postprocedural states (principal); M54.10 Radiculopathy, site unspecified | CPT/HCPCS: 72158; A9575 ==

== ENCOUNTER → 2025-03-05 10:18 | Outpatient (REF) | payer OTHER, SELFPAY | LOC: HWWDC 10:18 | PROVIDERS: ATTENDING PHYSICIAN Internal Medicine Geriatric Medicine; REFERRING PHYSICIAN Obstetrics & Gynecology | DX: Z12.31 Encounter for screening mammogram for malignant neoplasm of breast (principal) | CPT/HCPCS: 77063; 77067 ==

== ENCOUNTER → 2025-03-05 16:19 | Outpatient (REF) | payer OTHER, SELFPAY | LOC: PAVMRI 16:19 | PROVIDERS: ATTENDING PHYSICIAN Psychiatry & Neurology Neurology; FAMILY PHYSICIAN Internal Medicine Geriatric Medicine | DX: G43.E09 Chronic migraine with aura, not intractable, without status migrainosus (principal) | CPT/HCPCS: 70551 ==